=== PATIENT | male | born 1970 | race Caucasian/White ===

== ENCOUNTER 2023-12-02 17:24 | Emergency (ER) | payer OTHER, SELFPAY ==
[2023-12-02 17:25] VITALS: BP 132/91
[2023-12-02 18:20] LABS: % Basophils 0.3 % (0-2); % Eosinophils 1.4 % (0-6); % Immature Granulocytes 0.3 % (0-0.5); % Lymphocytes 31.2 % (20.5-51.1); % Monocytes 13.7 % (1.7-9.3); % Neutrophils 53.1 % (42.2-75.2); Absolute Eosinophils 0.1 10^3/uL (0-0.7); Absolute Monocytes 0.9 10^3/uL (0.1-0.6); Absolute Neutrophils 3.3 10^3/uL (1.4-6.5); Hematocrit 43.5 % (39.0-52.0); Hemoglobin 15.1 g/dL (13.0-18.0); Mean Corp Hgb Conc. 34.7 g/dL (33.0-37.0); Mean Corpuscular Volume 80.6 fL (80.0-94.0); Mean Platelet Volume 10.2 fL (7.4-10.4); Nucleated Red Blood Cells % 0 % (-); Platelet Count 287 10^3/uL (130-400); Red Cell Dist. Width 13.8 % (11.5-14.5); White Blood Cell Count 6.3 10^3/uL (4.8-10.8)
[2023-12-02 18:30] LABS: ALT (SGPT) 30 U/L (0-50); AST (SGOT) 32 U/L (17-59); Albumin 3.9 g/dl (3.5-5.0); Alkaline Phosphatase 80 U/L (38-126); Blood Urea Nitrogen 20 mg/dl (9-20); Calcium 9.4 mg/dl (8.4-10.2); Carbon Dioxide 27 mmol/L (22-30); Chloride 101 mmol/L (98-107); Glucose 99 mg/dl (70-99); Potassium 3.8 mmol/L (3.5-5.1); Sodium 136 mmol/L (135-145); Total Bilirubin 0.6 mg/dl (0.2-1.3); Total Protein 6.2 g/dl (6.3-8.2); eGFR > 60.00
--- NOTE | 2023-12-02 19:02 | ED.GENMED ---
History of Present Illness
<Matteo Conrad PA-C - Last Filed: 12/03/23 07:18>
General
Chief Complaint: Chest Pain
Time Seen by Provider: 12/02/23 17:39
Travel History
Have you had any contact with someone who has COVID-19?: No
Do you have any symptoms of coronavirus? Fever > 100 degrees, chills, cough, shortness of breath, sore throat, loss of taste or smell, muscle aches, or headache?: No
History of Present Illness
History of Present Illness:
53-year-old male presents emergency department for evaluation of chest pain developing at 1:00 today. He states he was preparing to go shovel snow however does not exert himself at the time. Pain does seem to gradually worsened along with
shortness of breath when exerting himself. He is quite minimal at this time. Is never had similar pain. Denies any associated fever chills sweats, shortness of breath, nausea, or vomiting. He is a smoker, denies cardiac risk factors
Review of Systems
<Matteo Conrad PA-C - Last Filed: 12/03/23 07:18>
Review of Systems
Allergies reviewed?: Yes
All Other Systems: ROS reviewed and negative except as documented in HPI and ROS
Phy Exam
<Matteo Conrad PA-C - Last Filed: 12/03/23 07:18>
Physical Exam
Physical Exam:
GEN: Well appearing, NAD, WDWN
HEENT: Oral mucosa moist, no scleral icterus
Cardiac: Regular rate and rhythm, no murmurs
Lung: No respiratory distress, no tachypnea
MSK: No gross deformity or injuries
Skin: Good color, no pallor or jaundice, no rashes
Neuro: AO x3, moves all extremities freely
Psych: Calm, cooperative
<VALENTINE Reis - Last Filed: 12/03/23 00:27>
Heart Score for Chest Pain Patients
STEMI patient?: Not applicable
Course
<Matteo Conrad PA-C - Last Filed: 12/03/23 07:18>
Orders/Labs/Results
Orders:
Orders
12/02/23 17:29
Electrocardiogram (*1) Urgent
Reason for Study: Chest Pain
EKG- Treatment ONCE
12/02/23 17:53
CR Chest - 2 Views Urgent
Comment:
Reason For Exam: chest pain
12/02/23 18:09
Complete Blood Count/With Diff Urgent
Comprehensive Metabolic Panel Urgent
Troponin I Urgent
12/02/23 18:55
EKG- Treatment ONCE
12/02/23 19:04
Aspirin Chewable [Low Strength Aspirin] 324 mg PO NOW STA
12/02/23 20:44
Troponin I Routine
12/02/23 21:00
EKG [Electrocardiogram (*1)] Routine
Reason for Study: Chest Pain
12/02/23 22:32
Ketorolac [Toradol] 15 mg IV NOW STA
12/02/23 22:40
D-Dimer Urgent
12/02/23 23:11
CT Chest Pe Study Urgent
Comment:
Reason For Exam: cp/sob
Abnormal Lab Results
12/02/23 12/02/23
18:09 22:40
Absolute Monos (auto) 0.9 H 10^3/uL
(0.1-0.6)
Monocytes % 13.7 H %
(1.7-9.3)
D-Dimer 1.98 H ug/mlFEU
(0.00-0.50)
Total Protein 6.2 L g/dl
(6.3-8.2)
12/02/23 18:09
02/13/24 18:09
Vital Signs
Initial and Last Documented VS:
Initial Vital Signs
Temp Pulse Resp BP Pulse Ox
97.8 F 89 18 132/91 98
12/02/23 17:25 12/02/23 17:25 12/02/23 17:25 12/02/23 17:25 12/02/23 17:25
Last Documented Vital Signs
Temp Pulse Resp BP Pulse Ox
97.8 F 63 18 113/80 98
12/02/23 17:25 12/03/23 00:15 12/02/23 17:25 12/03/23 00:00 12/02/23 23:15
<VALENTINE Reis - Last Filed: 12/03/23 00:27>
Orders/Labs/Results
Orders:
Orders
12/02/23 17:29
Electrocardiogram (*1) Urgent
Reason for Study: Chest Pain
EKG- Treatment ONCE
12/02/23 17:53
CR Chest - 2 Views Urgent
Comment:
Reason For Exam: chest pain
12/02/23 18:09
Complete Blood Count/With Diff Urgent
Comprehensive Metabolic Panel Urgent
Troponin I Urgent
12/02/23 18:55
EKG- Treatment ONCE
12/02/23 19:04
Aspirin Chewable [Low Strength Aspirin] 324 mg PO NOW STA
12/02/23 20:44
Troponin I Routine
12/02/23 21:00
EKG [Electrocardiogram (*1)] Routine
Reason for Study: Chest Pain
12/02/23 22:32
Ketorolac [Toradol] 15 mg IV NOW STA
12/02/23 22:40
D-Dimer Urgent
12/02/23 23:11
CT Chest Pe Study Urgent
Comment:
Reason For Exam: cp/sob
Abnormal Lab Results
12/02/23 12/02/23
18:09 22:40
Absolute Monos (auto) 0.9 H 10^3/uL
(0.1-0.6)
Monocytes % 13.7 H %
(1.7-9.3)
D-Dimer 1.98 H ug/mlFEU
(0.00-0.50)
Total Protein 6.2 L g/dl
(6.3-8.2)
12/02/23 18:09
12/02/23 18:09
Vital Signs
Initial and Last Documented VS:
Initial Vital Signs
Temp Pulse Resp BP Pulse Ox
97.8 F 89 18 132/91 98
12/02/23 17:25 12/02/23 17:25 12/02/23 17:25 12/02/23 17:25 12/02/23 17:25
Last Documented Vital Signs
Temp Pulse Resp BP Pulse Ox
97.8 F 63 18 113/80 98
12/02/23 17:25 12/03/23 00:15 12/02/23 17:25 12/03/23 00:00 12/02/23 23:15
<Matteo Conrad PA-C - Last Filed: 12/03/23 07:18>
MDM/Problems Addressed
MDM/Problems Addressed:
Initial EKG is unremarkable interpreted by me. Patient's cardiac enzymes reveal a negative troponin thus he will undergo delta troponin at 9 PM. Care signed out to Milagros Eduardo NP pending further workup. Will be referred to cardiology for the
chest pain hotline if troponin is stable
<VALENTINE Reis - Last Filed: 12/03/23 00:27>
MDM/Problems Addressed
MDM/Problems Addressed:
Initial EKG is unremarkable interpreted by me. Patient's cardiac enzymes reveal a negative troponin thus he will undergo delta troponin at 9 PM. Care signed out to Milagros Eduardo [employer] pending further workup. Will be referred to cardiology for the
chest pain hotline if troponin is stable.
2199: Case signed out to me. repeat troponin is now 0.019 unchanged from 0.020. No acute findings on repeat EKG. Pt still has same left sided chest discomfort. He is in no distress looks well. pt points to specific point to left chest. Pt was
eval by DR Gurrola with report of SOB w/ initial CP episode d dimer was checked and found to be negative for PE no thoracic aortic aneurysm no aortic dissection there is centrilobular emphysema. Patient did receive Toradol here feeling
slight discomfort. He again remains in no acute distress stable for discharge home as discussed with the physician close outpatient follow with cardiology. Patient placed on chest pain hotline.
<VALENTINE Reis - Last Filed: 12/03/23 00:27>
*Critical Care Note
Total Time (30-74mins, 75-104mins- exclusive of procedures): Not Applicable
ED Attending Note
<Matteo Conrad PA-C - Last Filed: 12/03/23 07:18>
-
Portions of this chart may have been created with voice recognition software.� Occasional wrong word or��sound alike� substitutions may have occurred due to the inherent limitations of voice recognition software.
Discharge Plan
Departure
Patient Disposition: Home (Routine Discharge)
Date of Disposition: 12/02/23
Time of Disposition: 22:03
Patient with high blood pressure during this ER visit?: Yes
Discharge Problem:
Chest pain
Instructions: Chest Pain CBC Follow Up, BLOOD PRESSURE
Referrals:
Jimbo Maldonado MD [Active] -
Activity Restrictions/Additional Instructions:
As discussed follow-up with cardiology. You should receive a phone call in the next 1 to 2 days from cardiology however if you do not please call the office to schedule an appointment soon as possible. Return to the ER for any worsening of symptoms
Interventions
Interventions:
*Risk Screen - Suicide Last Done: 12/02/23 20:45
*General Assessment Last Done: 12/02/23 20:45
*Neglect/Abuse Screening Last Done: 12/02/23 20:45
ED- Fall Risk Assessment Last Done: 12/03/23 00:28
*ED COVID-19 Vaccine History Last Done: 12/02/23 20:45
*Nursing Disposition Last Done: 12/03/23 00:28
ED- Cardiac Assessment Last Done: 12/02/23 18:45
Discharge Date and Time
Discharge Date/Time: 12/03/23 00:29
[2023-12-02] MEDS: LOW STRENGTH ASPIRIN 324 MG PO (19:13)
[2023-12-02 19:49] VITALS: BP 124/76
[2023-12-02 21:27] LABS: Troponin I 0.019 ng/ml
[2023-12-02 21:29] VITALS: BP 117/88
[2023-12-02 22:08] VITALS: BP 122/89
[2023-12-02] MEDS: TORADOL 15 MG IV (22:41)
[2023-12-02 23:00] VITALS: BP 123/88
[2023-12-02 23:03] LABS: D-Dimer 1.98 ug/mlFEU (0.00-0.50)
[2023-12-02 23:31] VITALS: BP 118/80
[2023-12-03] VITALS: BP 113/80
== END 2023-12-03 00:29 | disposition home or self-care (01) ==
LOC: EMR 17:24
PROVIDERS: Nurse Practitioner; Physician Assistant; EMERGENCY PHYSICIAN Emergency Medicine; FAMILY PHYSICIAN Internal Medicine
DX: R07.89 Other chest pain (principal); R03.0 Elevated blood-pressure reading, without diagnosis of hypertension
CPT/HCPCS: 99285; 96374; 71046; 71275; 80053; 84484; 85025; 85379; 93005; Q9967

== ENCOUNTER → 2024-01-26 07:35 | Outpatient (REF) | payer OTHER, SELFPAY | LOC: RCS 07:35 | PROVIDERS: ATTENDING PHYSICIAN Internal Medicine Cardiovascular Disease; FAMILY PHYSICIAN Internal Medicine | DX: R07.9 Chest pain, unspecified (principal) | CPT/HCPCS: 93017 ==

== ENCOUNTER 2024-06-20 19:34 | Emergency (ER) | payer OTHER, SELFPAY ==
[2024-06-20 19:35] VITALS: BP 157/94
[2024-06-20 19:53] VITALS: BP 138/96
[2024-06-20 20:00] VITALS: BP 142/109
--- NOTE | 2024-06-20 20:14 | ED.GENMED ---
History of Present Illness
General
Chief Complaint: Fainting/Passed Out
Source: patient and spouse
Time Seen by Provider: 06/20/24 19:52
History of Present Illness
History of Present Illness:
This patient is a 53-year-old male presents emergency department after having a syncopal event yesterday. He describes playing in a softball Personaling tournament, 3 games [id number], and felt well while he was doing this. He was mindful of
drinking plenty of fluids. After the game at approximately 1 PM he went into the car with his brother and was just talking. He did take 2 'hits' of marijuana. While he was talking he then started to feel hot, flushed, and sweaty and was noted to
have a syncopal event. This patient leaned forward and 'glazing over' lasting just over a minute without associated tonic-clonic activity, postictal state, incontinence, or tongue biting. However, patient states that he felt pretty 'groggy'
afterwards for about an hour even though he was fully oriented and in his words 'coherent'. He went about his day generally well. Today, he got up and hosted brunch with his in-laws. He then took a nap, and when he got up around 4 PM, about 30
minutes later he again started to feel flushed and hot described as feeling like he is having a 'hot flash'. The symptoms still continue although much improved. Within the last 48 hours he denies having any chest pain or pressure, palpitations,
dyspnea, leg edema, fever, chills, nausea, vomiting, visual changes, numbness, or other complaints. He does note a slight headache for the last 2 days, not sudden onset or worst of life, and he just generally feels a little 'off' described as
feeling like he is hung over. Lastly, he reports urinary frequency without pain.
Past History
Past History
ED Past Medical History: Other (PVCs)
ED Past Surgical History: Orthopedic
Social History
Tobacco: Vaping (Smoked a pack a day until 3 years ago when patient switched)
Alcohol: Occasional
Drug: Marijuana
Personal:
Living: with family
Phy Exam
Physical Exam
Physical Exam:
GENERAL: Alert , in no apparent distress
EYE: pupils equal and reactive
NECK: Supple, no significant adenopathy.
ENT: o/p clr, mmm.
CARDIAC: Regular rate and rhythm .
LUNGS: Clear breath sounds bilaterally, no acute respiratory distress, no wheezes/rales/rhonchi
ABDOMEN: Soft, without focal tenderness, no r/g, no cvat
NEUROLOGICAL: Alert and oriented, no focal neuro deficits
SKIN: Warm and dry, skin intact.
MUSCULOSKELETAL: No edema, well perfused.
PSYCH: Normal and appropriate interaction.
Course
Orders/Labs/Results
Orders:
Orders
06/20/24 19:41
Electrocardiogram (*1) Urgent
Reason for Study: Syncope
06/20/24 19:42
EKG- Treatment ONCE
06/20/24 20:13
Cardiac Monitoring- Treatment ONCE
Pulse Ox/cont/shift [RESP] Stat
Quantity: 1
06/20/24 20:14
CT Head W/o Iv Contrast Urgent
Comment:
Reason For Exam: syncope
06/20/24 20:22
Complete Blood Count/No Diff Urgent
Comprehensive Metabolic Panel Urgent
Troponin I Urgent
Abnormal Lab Results
06/20/24
20:22
MPV 10.8 H fL
(7.4-10.4)
Glucose 132 H mg/dl
(70-99)
Total Protein 5.9 L g/dl
(6.3-8.2)
06/20/24 20:22
06/20/24 20:22
Vital Signs
Initial and Last Documented VS:
Initial Vital Signs
Temp Pulse Resp BP Pulse Ox
98.2 F 64 18 157/94 97
06/20/24 19:35 06/20/24 19:35 06/20/24 19:35 06/20/24 19:35 06/20/24 19:35
Last Documented Vital Signs
Temp Pulse Resp BP Pulse Ox
98.2 F 60 17 153/90 95
06/20/24 19:35 06/20/24 21:45 06/20/24 21:45 06/20/24 21:39 06/20/24 20:23
*Critical Care Note
Total Time (30-74mins, 75-104mins- exclusive of procedures): Not Applicable
Update Note
Update Note:
Patient presents to the Emergency Department with ____syncope
Number and Complexity of Problems Addressed at the Encounter
� Chronic conditions affecting care:
� Acute Exacerbation and/or Progression of Chronic Illness:
� Differential Diagnosis includes: But not limited to vasovagal event, hyponatremia, arrhythmia, ACS, etc. etc.
Amount and/or Complexity of Data to be Reviewed and Analyzed
� I performed an independent evaluation of and my interpretation is:
EKG: Read by me, normal sinus rhythm, normal rate, normal axis, no acute ischemia
CT:read by me nad read by vision nad
Xrays:
Laboratory Studies:unremkarable
Other:
� Review of other/old records reveals: Patient had an exercise stress January 2024, negative for ischemia
� Clinical information was obtained by an independent historian: who is bedside
� Prescriptions/Medications Considered but not given:
� Further testing considered but not performed:
Risk of Complications and/or Morbidity or Mortality of Patient Management
� Social determinants of health affecting care:
� Discussion with other providers (PCP, Hospitalists, Consultants, etc):
� Escalation of care including admission/observation vs risk of discharge considered:10:10 PM patient comfortable, in no acute distress, no chest pain shortness of breath near syncope, etc. Discussed with patient and
importance of close follow-up and reasons return to the ER. No specific etiology for syncope noted but based on workup etc. here strongly suspect vasovagal event.
ED Attending Note
-
Portions of this chart may have been created with voice recognition software.� Occasional wrong word or��sound alike� substitutions may have occurred due to the inherent limitations of voice recognition software.
Discharge Plan
Departure
Patient Disposition: Home (Routine Discharge)
Date of Disposition: 06/20/24
Time of Disposition: 22:11
Patient with high blood pressure during this ER visit?: Yes
Condition: Good
Discharge Problem:
Syncope
Instructions: Syncope (Fainting) (DC), BLOOD PRESSURE
Referrals:
Sherin Mckeon MD [Family Provider] - Follow up in 2-3 days
Activity Restrictions/Additional Instructions:
IF YOU DEVELOP SEVERE HEADACHE, CHEST PAIN, TROUBLE BREATHING, NUMBNESS, WEAKNESS, CHANGE IN SPEECH, DIZZINESS, OR OTHER WORRISOME SIGNS, PLEASE RETURN TO THE ER IMMEDIATELY.
Interventions
Interventions:
*Risk Screen - Suicide Last Done: 06/20/24 19:35
*General Assessment Last Done: 06/20/24 19:35
*Neglect/Abuse Screening Last Done: 06/20/24 19:35
ED- Cardiac Assessment Last Done: 06/20/24 20:26
ED- Neurological Assessment Last Done: 06/20/24 20:25
Discharge Date and Time
Print Language: [place]
[2024-06-20 20:30] LABS: Hematocrit 40.4 % (39.0-52.0); Hemoglobin 13.8 g/dL (13.0-18.0); Mean Corp Hgb Conc. 34.2 g/dL (33.0-37.0); Mean Corpuscular Volume 82.1 fL (80.0-94.0); Mean Platelet Volume 10.8 fL (7.4-10.4); Platelet Count 267 10^3/uL (130-400); Red Blood Cell Count 4.92 10^6/uL (4.70-6.10); Red Cell Dist. Width 14.4 % (11.5-14.5); White Blood Cell Count 9.5 10^3/uL (4.8-10.8)
[2024-06-20 20:45] LABS: ALT (SGPT) 27 U/L (0-50); AST (SGOT) 37 U/L (17-59); Albumin 3.8 g/dl (3.5-5.0); Alkaline Phosphatase 83 U/L (38-126); Blood Urea Nitrogen 19 mg/dl (9-20); Calcium 9.5 mg/dl (8.4-10.2); Carbon Dioxide 30 mmol/L (22-30); Chloride 103 mmol/L (98-107); Glucose 132 mg/dl (70-99); Potassium 3.8 mmol/L (3.5-5.1); Sodium 140 mmol/L (135-145); Total Bilirubin 0.3 mg/dl (0.2-1.3); Total Protein 5.9 g/dl (6.3-8.2); eGFR > 60.00
[2024-06-20 20:55] LABS: Troponin I < 0.012 ng/ml
[2024-06-20 21:39] VITALS: BP 153/90
== END 2024-06-20 22:31 | disposition home or self-care (01) ==
LOC: EMR 19:34
PROVIDERS: EMERGENCY PHYSICIAN Emergency Medicine; FAMILY PHYSICIAN Family Medicine
DX: R55 Syncope and collapse (principal); R03.0 Elevated blood-pressure reading, without diagnosis of hypertension; F17.290 Nicotine dependence, other tobacco product, uncomplicated
CPT/HCPCS: 99285; 70450; 80053; 84484; 85027; 93005